=== PATIENT | female | born 1990 | race African-American/Black ===

== ENCOUNTER 2019-02-06 12:15 | Inpatient (IN) | payer BC ==
[2019-02-06] MEDS: OXYCODONE/ACETAMINOPHEN (5/325) TAB PO (12:33)
[2019-02-06] MEDS: LACTATED RINGER'S 1,000 ML IV (12:46)
[2019-02-06] MEDS: ONDANSETRON 4 MG INJ IV (12:46)
[2019-02-06] MEDS: morphine 4 MG/ML VIAL IV (12:47)
[2019-02-06 12:57] LABS: ADD MAN DIFF? NO
[2019-02-06 12:58] LABS: WHITE BLOOD COUNT 8.6 10^3/ul (4.8-10.8)
[2019-02-06 12:58] LABS: BASOPHILS % 0.5 % (0.0-2.0); EOSINOPHILS % 0.3 % (0.0-7.0); HEMATOCRIT 43.9 % (37.0-47.0); HEMOGLOBIN 14.5 g/dl (12.0-16.0); LYMPHOCYTES # 1.6 10^3/ul (0.8-2.9); LYMPHOCYTES % 18.5 % (15.0-51.0); MEAN CORPUSCULAR HEMOGLOBIN 30.8 pg (29.0-33.0); MEAN CORPUSCULAR VOLUME 93.2 fl (82.0-101.0); MEAN PLATELET VOLUME 10.5 fl (7.4-10.4); MONOCYTE # 0.6 10^3/ul (0.3-0.9); MONOCYTES % 6.6 % (0.0-11.0); NEUTROPHIL # 6.3 10^3/ul (1.6-7.5); NEUTROPHILS % 73.9 % (39.0-77.0); PLATELET COUNT 451 10^3/UL (140-415); RED BLOOD COUNT 4.71 10^6/ul (4.20-5.40); RED CELL DISTRIBUTION WIDTH 11.9 % (11.5-14.5)
[2019-02-06 13:18] LABS: ALANINE AMINOTRANSFERASE 22 IU/L (13-69); ALBUMIN 4.8 g/dl (3.3-4.9); ALBUMIN/GLOBULIN RATIO 1.37; ALKALINE PHOSPHATASE 80 IU/L (42-121); ANION GAP 11 (5-13); ASPARTATE AMINO TRANSFERASE 26 IU/L (15-46); BILIRUBIN,INDIRECT 0.6 mg/dl (0-1.1); BILIRUBIN,TOTAL 0.6 mg/dl (0.2-1.3); BLOOD UREA NITROGEN 15 mg/dl (7-20); CALCIUM 9.9 mg/dl (8.4-10.2); CARBON DIOXIDE 24 mmol/L (21-31); CHLORIDE 105 mmol/L (97-110); CREATININE 0.82 mg/dl (0.44-1.00); Estimated GFR > 60 mL/min (>60); GLUCOSE 111 mg/dl (70-220); INR 0.86; LIPASE 65 U/L (23-300); POTASSIUM 4.4 mmol/L (3.5-5.1); PROTIME 11.8 Sec (11.9-14.9); PT RATIO 0.9; SODIUM 140 mmol/L (135-144); TOTAL PROTEIN 8.3 g/dl (6.1-8.1)
[2019-02-06 13:19] LABS: PARTIAL THROMBOPLASTIN TIME 29.1 Sec (23.0-35.0)
[2019-02-06] MEDS ORDERED: HYDROCODONE/APAP (5/325) TAB PO (16:30)
[2019-02-06] MEDS ORDERED: DOCUSATE SODIUM 100 MG CAP PO (16:30)
[2019-02-06] MEDS ORDERED: ACETAMINOPHEN 325 MG TAB PO (16:30)
[2019-02-07 07:30] LABS: HEMOGLOBIN A1C 5.2 % (0-5.9)
[2019-02-07] MEDS ORDERED: MIDAZOLAM 1 MG/ML 2 ML INJ (07:41)
[2019-02-07] MEDS ORDERED: POLYMYXIN/BACITRACIN 1L IRRIG (07:43)
[2019-02-07] MEDS: POLYMYXIN/BACITRACIN 1L IRRIG IRR (08:40)
[2019-02-07] MEDS ORDERED: morphine 10 MG INJ (09:28)
[2019-02-07] MEDS ORDERED: LIDOCAINE 2% (SDV) 5 ML INJ (09:57)
[2019-02-07] MEDS ORDERED: PROPOFOL 20 ML (09:57)
[2019-02-07] MEDS ORDERED: CEFAZOLIN 1 GM INJ (09:57)
[2019-02-07] MEDS ORDERED: ROPIVACAINE 0.5 % 30 ML VIAL (09:58)
[2019-02-07] MEDS ORDERED: ONDANSETRON 4 MG INJ (10:00)
[2019-02-07] MEDS ORDERED: NACL 0.9% 3 ML SYG IV (10:30)
[2019-02-07] MEDS ORDERED: HYDROmorphONE 1 MG/5 ML IV SYRINGE IV ×2 (10:42→11:00)
[2019-02-07] MEDS: HYDROmorphONE 1 MG/5 ML IV SYRINGE IV ×2 (10:55→11:07)
[2019-02-07] MEDS: SOD CHLORIDE 0.9% 1,000 ML IV ×2 (10:57→20:13)
[2019-02-07] MEDS ORDERED: CEFAZOLIN 1 GM/50 ML (PMX) 50 ML IVPB (10:59)
[2019-02-07] MEDS ORDERED: NALOXONE (0.4 MG/ML) INJ IV (11:00)
[2019-02-07] MEDS: PANTOPRAZOLE (EC) 40 MG TAB PO (11:00)
[2019-02-07] MEDS ORDERED: METOCLOPRAMIDE 10 MG INJ IV (11:00)
[2019-02-07] MEDS ORDERED: DIPHENHYDRAMINE 50 MG INJ IV (11:00)
[2019-02-07] MEDS: CEFAZOLIN 1 GM/50 ML (PMX) 50 ML IVPB ×2 (11:16→20:06)
[2019-02-07] MEDS: MEPERIDINE 25 MG INJ IV (11:17)
[2019-02-07] MEDS: ONDANSETRON 4 MG INJ IV ×2 (11:17→15:12)
[2019-02-07] MEDS ORDERED: hydrALAzine 20 MG INJ IV (12:00)
[2019-02-07] MEDS: LABETALOL HCL 20MG INJ IV (12:01)
[2019-02-07] MEDS: FENTAnyl 50 MCG/ML VIAL IV (12:06)
[2019-02-07] MEDS: morphine 4 MG/ML VIAL IV (13:25)
[2019-02-07] MEDS: KETOROLAC 15 MG INJ IV (20:07)
[2019-02-08] MEDS: SOD CHLORIDE 0.9% 1,000 ML IV (00:58)
[2019-02-08] MEDS: HYDROCODONE/APAP (10/325) TAB PO ×3 (02:07→14:21)
[2019-02-08] MEDS: morphine 4 MG/ML VIAL IV ×2 (02:24→10:41)
[2019-02-08] MEDS: ONDANSETRON 4 MG INJ IV ×2 (02:27→10:38)
[2019-02-08] MEDS: CEFAZOLIN 1 GM/50 ML (PMX) 50 ML IVPB (04:29)
[2019-02-08] MEDS: KETOROLAC 15 MG INJ IV (04:29)
[2019-02-08] MEDS: PANTOPRAZOLE (EC) 40 MG TAB PO (08:51)
[2019-02-08] MEDS: ENOXAPARIN 40 MG/0.4 ML SYG SC (08:52)
[2019-02-08] MEDS ORDERED: HYDROCODONE/APAP (10/325) TAB PO (14:00)
[2019-02-08] MEDS: IBUPROFEN 600 MG TAB PO (18:38)
== END 2019-02-08 18:55 | disposition home health service (06) | DRG 502 ==
LOC: REC 12:56 → FTE 12:15 → MS1 02-07 12:20
PROC: 0LQR0ZZ Repair Left Knee Tendon, Open Approach (ICD-10-PCS; principal; 2019-02-07 07:30)
DX: S76.112A Strain of left quadriceps muscle, fascia and tendon, initial encounter (principal); V00.141A Fall from scooter (nonmotorized), initial encounter; Y92.410 Unspecified street and highway as the place of occurrence of the external cause; R03.0 Elevated blood-pressure reading, without diagnosis of hypertension; E66.01 Morbid (severe) obesity due to excess calories; Z68.29 Body mass index [BMI] 29.0-29.9, adult
CPT/HCPCS: 36415; 73560; 73562; 80053; 83036; 83690; 84703; 85025; 85610; 85730; 93005; 96374; 96375; 97116; 97161; 97165; 97530; 99285-25